=== PATIENT | male | born 1960 | race African-American/Black ===

== ENCOUNTER 2019-12-14 16:22 | Emergency (ER) | payer MEDICAID, OTHER ==
[~2019-12-14] VITALS: Ht 172.7 cm; Wt 59.0 kg
[2019-12-14] MEDS ORDERED: IBUPROFEN 600MG TABLET PO STA (16:53)
[2019-12-14] MEDS ORDERED: TETANUS, DIPHTHERIA, PERTUSSIS VAC/PF 0.5ML (>7YR OLD) IM ONE (17:00)
[2019-12-14 17:35] VITALS: BP 127/47
== END 2019-12-14 17:36 | disposition home or self-care (01) ==
LOC: ER 16:22
DX: S91.331A Puncture wound without foreign body, right foot, initial encounter (principal); W22.8XXA Striking against or struck by other objects, initial encounter; Y93.89 Activity, other specified; Y92.89 Other specified places as the place of occurrence of the external cause; Y99.8 Other external cause status
CPT/HCPCS: 90471; 90715; 99283